=== PATIENT | male | born 1945 | race Caucasian/White ===

== ENCOUNTER 2017-12-07 10:51 | Emergency (ER) | payer MEDICARE, BC ==
[~2017-12-07] VITALS: Ht 175.3 cm; Wt 84.0 kg
[~2017-12-07 10:51] MED LIST: AMOX500C2 PO; CLOP75TA33 PO; LEVO125T PO; METF500T PO; PROP60TA19 PO; VERA120T96 PO
[2017-12-07 11:01] VITALS: BP 168/62
== END 2017-12-07 12:43 | disposition short-term general hospital (02) ==
LOC: ER 10:52
DX: M25.571 Pain in right ankle and joints of right foot (principal); M79.671 Pain in right foot; F17.200 Nicotine dependence, unspecified, uncomplicated; Z79.899 Other long term (current) drug therapy
CPT/HCPCS: 73610; 73630; 99284

== ENCOUNTER 2017-12-12 07:47 | Emergency (ER) | payer MEDICARE, BC ==
[~2017-12-12] VITALS: Ht 172.7 cm; Wt 85.7 kg
[2017-12-12] MEDS ORDERED: CYCL-1 PO (08:56)
[2017-12-12 09:12] VITALS: BP 164/69
== END 2017-12-12 09:10 | disposition home or self-care (01) ==
LOC: ER 07:48
DX: S16.1XXA Strain of muscle, fascia and tendon at neck level, initial encounter (principal); M54.12 Radiculopathy, cervical region; Z79.899 Other long term (current) drug therapy; X50.1XXA Overexertion from prolonged static or awkward postures, initial encounter; Y93.89 Activity, other specified; Y92.89 Other specified places as the place of occurrence of the external cause; Y99.9 Unspecified external cause status
CPT/HCPCS: 72040; 99284